=== PATIENT | male | born 1970 | race Caucasian/White ===

== ENCOUNTER 2022-11-13 10:53 | Day surgery (SDC) | payer OTHER ==
[~2022-11-13] VITALS: Ht 185.4 cm; Wt 103.6 kg
[~2022-11-13 10:53] MED LIST: DOXYCYCLINE HY100 MG PO; OMEPRAZOLE20 MG PO
[2022-11-13 11:15] VITALS: BP 128/69
--- NOTE | 2022-11-13 14:34 | NUR ---
11/13/22 1434 Rossy Price 1428 TO PACU, RESP EVEN UNLABORED. DIAPHORETIC.
[2022-11-13 15:02] VITALS: BP 132/92
--- NOTE | 2022-11-15 11:23 | OR ---
[facility] [address], [place] [address] Signed DATE OF OPERATION: 11/13/2022 SURGEON: Zack Wei MD PREOPERATIVE DIAGNOSES: 1. Clinical gastroesophageal reflux. 2. History of polyps of colon. POSTOPERATIVE DIAGNOSES: 1. Hiatal hernia with distal esophagitis. 2. Small polyp of the low rectum and associated sigmoid diverticulosis. PROCEDURES: 1. Esophagogastroduodenoscopy with biopsy. 2. Total colonoscopy to cecum with cold morcellation polypectomy x1. ANESTHESIA: Intravenous sedation; fentanyl 150 mcg, Versed 8 mg total. INDICATION: This 52-year-old white man is a patient of Dr. Anette Reynaga and here for consideration of colonoscopy and upper endoscopy. He underwent colonoscopy in 2019 elsewhere which showed 5 polyps. He has no symptoms of bleeding, diarrhea or constipation and no family history of colon cancer. He also has gastroesophageal reflux, for which he takes omeprazole every so often. He had a trial of Pepcid, which is not as helpful to him. He has no family history of esophageal cancer and no dysphagia currently. He takes omeprazole and doxycycline. He is admitted at this time to undergo upper endoscopy and colonoscopy. He understands the risk of bleeding, infection, and perforation. FINDINGS: Upper endoscopy confirmed a small to moderate-sized hiatal hernia and mild distal esophagitis. There was no evidence of Khan epithelium or stricture neoplasm. CLOtest was negative. On colonoscopy, the prep was good. Complete colonoscopy was undertaken of the cecum without question. A few diverticula were noted at the sigmoid colon. There was a small polyp of the low rectum, which was excised. There were no other findings of concern. Electronically Signed By: ZACK WEI MD 11/15/22 1123 PATIENT NAME: ALLEGRA GUERRERO OPERATIVE REPORT DATE OF : 66 REPORT #: [id number] PHYSICIAN: ZACK WEI MD PCP: ANETTE REYNAGA MD REPORT IS CONFIDENTIAL AND NOT TO BE RELEASED WITHOUT AUTHORIZATION [facility] [address], [place] [address] Signed DESCRIPTION OF PROCEDURE: The patient was brought to the endoscopy suite and placed in the lateral decubitus position, given intravenous sedation to the point of slurred speech and nystagmus with full cardiopulmonary monitoring. Preoperative antibiotic Ancef was given on the basis of joint replacement in the past. Lidocaine had been administered to his hypopharynx as well. After satisfactory sedation, an Olympus video upper endoscope was passed in the hypopharynx through the bite block. Vocal cords appeared normal. Scope was advanced through the esophagus. The distal portion had chronic inflammatory change, but no evidence of Khan epithelium, stricture or neoplasm. Scope was passed to the stomach which was insufflated with air. Rugal folds were normal. The antrum was normal as was the pylorus. The scope was passed into the duodenal which was normal. Biopsies were taken of the duodenum. The scope was withdrawn and biopsies taken of the antrum for both WALKER and pathologic testing. Retroflexed view was undertaken confirming a small to moderate-sized hiatal hernia. The scope was withdrawn and distal esophageal biopsies were obtained. His mucosa was chronically inflamed. There was no sign of Khan epithelium, stricture or neoplasm. The scope was further withdrawn. There were no other findings. A biopsy was taken in the mid esophagus. Plans were then made for colonoscopy. Digital rectal examination was normal. Prostate was normal in size and configuration. An Olympus video colonoscope was passed in the rectum and manipulated throughout the colon ultimately intubating the cecum itself. The ileocecal valve and appendiceal orifice were normal. Scope was withdrawn from that point and examination showed no sign of abnormality into the left colon where scattered diverticula were noted. In the low rectum, there was a small polyp which was excised with cold morcellation technique. Retroflexed view was undertaken showing no other findings of concern. The scope was removed and the patient was taken to the recovery room in good condition. CONCLUDING DIAGNOSES: 1. Hiatal hernia with clinical and endoscopic findings of esophagitis. 2. Minimal diverticulosis left colon and small polyp of rectum. PLAN: Recommend Prilosec 20 mg p.o. on a daily basis. Would recommend repeat colonoscopy in 3 to 5 years depending on histology of the polyp. We will see the patient back in 4 to 6 weeks to review his findings and progress with medication. Zack Wei MD Electronically Signed By: ZACK WEI MD 11/15/22 1123 PATIENT NAME: ALLEGRA GUERRERO OPERATIVE REPORT DATE OF : 66 REPORT #: [id number] PHYSICIAN: ZACK WEI MD PCP: ANETTE REYNAGA MD REPORT IS CONFIDENTIAL AND NOT TO BE RELEASED WITHOUT AUTHORIZATION [facility] [address] [place] [id number] Signed /JANUSZ /[id number] cc: Dr. Anette Reynaga Copies: ~ Electronically Signed By: ZACK WEI MD 11/15/22 1123 PATIENT NAME: ALLEGRA GUERRERO OPERATIVE REPORT DATE OF : 66 REPORT #: [id number] PHYSICIAN: ZACK WEI MD PCP: ANETTE REYNAGA MD REPORT IS CONFIDENTIAL AND NOT TO BE RELEASED WITHOUT AUTHORIZATION
--- NOTE | 2022-11-17 14:37 | PATH ---
[facility] [address] [facility] [place], [place] [address] Signed SPECIMEN(S): A DUODENAL BIOPSY SPECIMEN(S): B DUODENAL BULB BIOPSY SPECIMEN(S): C ANTRUM/PYLORUS BIOPSY SPECIMEN(S): D DISTAL ESOPHAGEAL BIOPSY SPECIMEN(S): E MID ESOPHAGEAL BIOPSY SPECIMEN(S): F RECTAL POLYP SPECIMEN SOURCE: A. DUODENAL BIOPSY B. DUODENAL BULB BIOPSY C. ANTRUM/PYLORUS BIOPSY D. DISTAL ESOPHAGEAL BIOPSY E. MID ESOPHAGEAL BIOPSY F. RECTAL POLYP CLINICAL HISTORY: History of colon polyps, GERD. Post: Esophagitis, hiatal hernia, diverticulosis FINAL PATHOLOGIC DIAGNOSIS: A. Duodenum, biopsies: - Benign duodenal mucosa, negative for significantly increased intraepithelial lymphocytosis and villous blunting. B. Duodenal bulb, biopsies: - Benign duodenal mucosa, negative for significantly increased intraepithelial lymphocytosis and villous blunting. C. Antrum/pylorus, biopsies: - Benign antral and oxyntic-type gastric mucosa. - Negative for intestinal metaplasia. - Negative for Helicobacter pylori organisms on routine stain. D. Distal esophagus, biopsies: - Reactive squamous epithelium with reflux changes. - Negative for intestinal metaplasia and dysplasia. E. Mid esophagus, biopsies: - Reactive squamous epithelium with reflux changes. - Negative for acute inflammation and increased eosinophils. F. Rectal polyp, polypectomy: - Two fragments of hyperplastic polyp. DDF:em:[id number] MICROSCOPIC EXAMINATION: PATIENT NAME: YOLANDAALLEGRA HINESAN PATHOLOGY DATE OF : 66 REPORT #: [id number] PHYSICIAN: BILL MILLAN PCP: OSMEL REYNAGA MD REPORT IS CONFIDENTIAL AND NOT TO BE RELEASED WITHOUT AUTHORIZATION [facility] [address] [place], [place] [address] Signed Histologic sections of all submitted blocks are examined by light microscopy. These findings, together with the gross examination, support the pathologic diagnosis. GROSS DESCRIPTION: A. The specimen, labeled and designated "[place], duodenal biopsy," is received in formalin and consists of two kapoor soft tissue fragments, ranging from 0.2 to 0.4 cm. Entirely submitted in (A1). B. The specimen, labeled and designated "[place]an[place], duodenal bulb biopsy," is received in formalin and consists of three kapoor soft tissue fragments, ranging from 0.1 to 0.4 cm. Entirely submitted in (B1). C. The specimen, labeled and designated "[place], antrum/pylorus biopsy," is received in formalin and consists of two kapoor soft tissue fragments, ranging from 0.2 to 0.4 cm. Entirely submitted in (C1). D. The specimen, labeled and designated "[place]an[place], distal esophageal biopsy," is received in formalin and consists of five kapoor soft tissue fragments, ranging from 0.3 to 0.5 cm. Entirely submitted in (D1). E. The specimen, labeled and designated "[place]an[place], mid esophageal biopsy," is received in formalin and consists of four kapoor soft tissue fragments, ranging from 0.1 to 0.2 cm. Entirely submitted in (E1). F. The specimen, labeled and designated "[place]an[place], rectal polyp," is received in formalin and consists of two kapoor soft tissue fragments, ranging from 0.1 to 0.2 cm. Entirely submitted in (F1). VB (under the direct supervision of a pathologist) The Gross Description was prepared using a voice recognition system. The report was reviewed for accuracy; however, sound-alike word errors, addition and/or deletions may occur. If there is any question about this report, please contact Client Services. PERFORMING LABORATORY: The technical component was performed by [facility], [address] [place] [address] (CLIA# [id number]). Professional interpretation was performed by [facility], [facility], [address] [place] [address] (CLIA#: [id number]) Diagnostician: Irvin Noble DO Pathologist PATIENT NAME: ALLEGRA GUERRERO PATHOLOGY DATE OF : 66 REPORT #: [id number] PHYSICIAN: BILL PATHOLOGY PCP: OSMEL REYNAGA MD REPORT IS CONFIDENTIAL AND NOT TO BE RELEASED WITHOUT AUTHORIZATION [facility] [address] [place] [address] [place], [place] [address] Signed Electronically Signed 11/17/2022 Copies: ~ PATIENT NAME: ALLEGRA GUERRERO PATHOLOGY DATE OF : 66 REPORT #: [id number] PHYSICIAN: BILL MILLAN PCP: OSMEL REYNAGA MD REPORT IS CONFIDENTIAL AND NOT TO BE RELEASED WITHOUT AUTHORIZATION
== END 2022-11-13 15:15 | disposition home or self-care (01) ==
LOC: DS 10:53 → OPS 10:53 → DS 14:00 → OPS 15:15
PROVIDERS: ATTEND Surgery
PROC: 0DB38ZX Excision of Lower Esophagus, Via Natural or Artificial Opening Endoscopic, Diagnostic (ICD-10-PCS; 2022-11-13)
PROC: 0DB28ZX Excision of Middle Esophagus, Via Natural or Artificial Opening Endoscopic, Diagnostic (ICD-10-PCS; 2022-11-13)
PROC: 0DBP8ZX Excision of Rectum, Via Natural or Artificial Opening Endoscopic, Diagnostic (ICD-10-PCS; 2022-11-13)
PROC: 0DB98ZX Excision of Duodenum, Via Natural or Artificial Opening Endoscopic, Diagnostic (ICD-10-PCS; principal; 2022-11-13 11:50)
PROC: 0DB78ZX Excision of Stomach, Pylorus, Via Natural or Artificial Opening Endoscopic, Diagnostic (ICD-10-PCS; 2022-11-13 11:50)
DX: Z12.11 Encounter for screening for malignant neoplasm of colon (principal); K62.1 Rectal polyp; K44.9 Diaphragmatic hernia without obstruction or gangrene; K21.00 Gastro-esophageal reflux disease with esophagitis, without bleeding; K57.30 Diverticulosis of large intestine without perforation or abscess without bleeding; Z79.899 Other long term (current) drug therapy; Z86.010 Personal history of colon polyps
CPT/HCPCS: 99153; G0500; J0690; J2250; J3010; J7121